=== PATIENT | female | born 1935 | race African-American/Black ===

== ENCOUNTER 2022-03-25 18:01 | Inpatient (IN) | payer OTHER ==
[~2022-03-25] VITALS: Ht 157.5 cm; Wt 63.6 kg
[2022-03-25] MEDS ORDERED: NITROGLYCERIN 0.4MG TABLET SL SL PRN ×2 (19:30→23:15)
[2022-03-25] MEDS ORDERED: ASPIRIN 81MG TABLET PO ONE (19:30)
[2022-03-25 19:54] LABS: BASOPHILS % 0.5 % (0.0-2.0); EOSINOPHILS % 1.8 % (0.0-5.0); HEMATOCRIT. 27.4 % (36.0-48.0); LYMPHOCYTES % 32.3 % (20.0-50.0); MEAN PLATELET VOLUME 9.4 fl (7.4-10.4); MONOCYTES % 6.9 % (2.0-8.0); NEUTROPHILS % 58.5 % (40.0-76.0); PLATELET 190 x1000/uL (130-400); RED BLOOD CELL COUNT 3.01 mill/uL (4.2-5.4); RED CELL DISTRIBUTION WIDTH 14.8 % (11.6-14.6)
[2022-03-25 20:04] LABS: D-DIMER 1.5 mg/L FEU (<0.50); PARTIAL THROMBOPLASTIN TIME 22.8 sec (23.4-31.0); PROTHROMBIN TIME 11.1 sec (9.6-11.0)
[2022-03-25 20:07] LABS: CHLORIDE 102 mEq/L (98-107)
[2022-03-25] MEDS ORDERED: ENOXAPARIN 60MG/0.6ML SYR SUBCUT ONE (22:15)
[2022-03-25] MEDS ORDERED: MAGNESIUM/ALUMINUM HYDROXIDE/SIMETHICONE 30ML UDC PO PRN (23:15)
[2022-03-25] MEDS ORDERED: KETOROLAC 15MG/ML VIAL IV PRN (23:15)
[2022-03-25] MEDS ORDERED: DEXTROSE 50% WATER 50ML SYRINGE IV PRN (23:15)
[2022-03-25] MEDS ORDERED: DOCUSATE SODIUM 100MG CAPSULE PO PRN (23:15)
[2022-03-25] MEDS ORDERED: ACETAMINOPHEN 325MG TABLET PO PRN ×2 (23:15)
[2022-03-25] MEDS ORDERED: IPRATROPIUM/ALBUTEROL 0.5-3(2.5)MG/3ML NEB NEB PRN (23:15)
[2022-03-25] MEDS ORDERED: ZOLPIDEM TARTRATE 5MG TABLET PO PRN (23:15)
[2022-03-25] MEDS ORDERED: CLONIDINE 0.1MG TABLET PO PRN (23:15)
[2022-03-25] MEDS ORDERED: GUAIFENESIN 200MG/10ML SUGAR FREE UDC PO PRN (23:15)
[2022-03-25] MEDS ORDERED: ONDANSETRON HCL 4MG/2ML INJ IV PRN (23:15)
[2022-03-26] VITALS (8 sets, daily range): BP systolic 122–159; BP diastolic 51–62
[2022-03-26 00:23] LABS: ETHANOL BLOOD < 10 mg/dL; HDL CHOLESTEROL 51 mg/dL (40-59); LDL CHOLESTEROL 39 mg/dL (5-100); TOTAL IRON BINDING CAPACITY 324 ug/dL (250-450)
[2022-03-26 01:43] LABS: *AMPHETAMINES SCREEN URINE NEGATIVE (NEGATIVE); *BARBITURATES SCREEN URINE NEGATIVE (NEGATIVE); *BENZODIAZEPINES SCREEN URINE NEGATIVE (NEGATIVE); *COCAINE SCREEN URINE NEGATIVE (NEGATIVE); CANNABINOID URINE SCREEN NEGATIVE (NEGATIVE); METHADONE URINE SCREEN NEGATIVE (NEGATIVE); OPIATES URINE SCREEN NEGATIVE (NEGATIVE); PHENCYCLIDINE URINE SCREEN NEGATIVE (NEGATIVE)
[2022-03-26] MEDS ORDERED: ATOR-2 PO (04:31)
[2022-03-26] MEDS ORDERED: ASPI-1406 PO (04:31)
[2022-03-26] MEDS ORDERED: AMLO10TA80 PO (04:31)
[2022-03-26] MEDS ORDERED: METO-385 PO (04:31)
[2022-03-26] MEDS ORDERED: ISOS10TA2 PO (04:31)
[2022-03-26] MEDS ORDERED: CLOP75TA33 PO (04:31)
[2022-03-26] MEDS ORDERED: NITR0.4T49 SL (04:31)
[2022-03-26] MEDS: BLOOD SUGAR DIAGNOSTIC STRIP TEST SCH ×3 (05:42→21:00)
[2022-03-26] MEDS ORDERED: ASPIRIN 325MG EC TABLET PO SCH (09:00)
[2022-03-26] MEDS: FAMOTIDINE 20MG TABLET PO SCH (09:03)
[2022-03-26] MEDS: ENOXAPARIN 30MG/0.3ML SYR SUBCUT SCH (09:04)
[2022-03-26] MEDS: AMLODIPINE 10MG TABLET PO SCH (09:04)
[2022-03-26] MEDS: INSULIN LISPRO 100 UNITS/ML SUBCUT SCH ×3 (09:16→21:00)
[2022-03-26 10:22] LABS: BASOPHILS % 0.2 % (0.0-2.0); EOSINOPHILS % 1.7 % (0.0-5.0); HEMATOCRIT. 30.3 % (36.0-48.0); HEMOGLOBIN. 9.9 g/dL (12.0-16.0); LYMPHOCYTES % 38.6 % (20.0-50.0); MEAN CORPUSCULAR HEMOGLOBIN 29.6 pg (28.0-32.0); MEAN CORPUSCULAR VOLUME 90.5 fL (81.0-99.0); MEAN PLATELET VOLUME 9.1 fl (7.4-10.4); MONOCYTES % 5.2 % (2.0-8.0); NEUTROPHILS % 54.3 % (40.0-76.0); PLATELET 194 x1000/uL (130-400); RED BLOOD CELL COUNT 3.35 mill/uL (4.2-5.4); RED CELL DISTRIBUTION WIDTH 14.4 % (11.6-14.6)
[2022-03-26] MEDS: SODIUM CHLORIDE 0.45% 1,000 ML IV SCH (12:23)
[2022-03-26 13:19] LABS: CHLORIDE 102 mEq/L (98-107)
[2022-03-26 13:30] LABS: CREATINE KINASE MB FRACTION 1.1 ng/mL (0.5-3.6)
[2022-03-26 13:32] LABS: PHOSPHORUS 3.5 mg/dL (2.5-4.9)
[2022-03-26] MEDS ORDERED: HEPARIN 1000 UNITS/ML 10ML ONE (13:54)
[2022-03-26] MEDS ORDERED: IODIXANOL 320MG/ML 100 ML BOTTLE IV ONE ×2 (13:58→15:33)
[2022-03-26] MEDS ORDERED: MIDAZOLAM HCL 2 MG/2 ML VIAL ONE (14:33)
[2022-03-26] MEDS ORDERED: FENTANYL CITRATE/PF 50MCG/ML 2ML VIAL ONE (14:33)
[2022-03-26] MEDS ORDERED: LIDOCAINE HCL/PF 2% 20MG/ML 5 ML/VIAL ONE ×2 (14:50→15:18)
[2022-03-26] MEDS ORDERED: LIDOCAINE HCL 1% 20ML VIAL (Pyxis) INJ ONE (15:18)
[2022-03-26] MEDS ORDERED: ATROPINE SULFATE 1MG/10ML SYR IV PRN (16:00)
[2022-03-26] MEDS ORDERED: ONDANSETRON HCL 4MG/2ML INJ IV PRN (16:00)
[2022-03-26] MEDS ORDERED: ACETAMINOPHEN 325MG TABLET PO PRN (16:00)
[2022-03-26 17:17] LABS: FOLIC ACID (FOLATE) SERUM 19.3 ng/mL (>5.38)
[2022-03-26 18:07] LABS: CREATINE KINASE MB FRACTION 1.5 ng/mL (0.5-3.6)
[2022-03-27] VITALS (12 sets, daily range): BP systolic 99–141; BP diastolic 52–64
[2022-03-27] MEDS: SODIUM CHLORIDE 0.45% 1,000 ML IV SCH ×2 (02:25→20:38)
[2022-03-27] MEDS: BLOOD SUGAR DIAGNOSTIC STRIP TEST SCH ×4 (06:35→20:23)
[2022-03-27] MEDS: INSULIN LISPRO 100 UNITS/ML SUBCUT SCH ×4 (06:35→20:28)
[2022-03-27 07:05] LABS: BASOPHILS % 0.2 % (0.0-2.0); EOSINOPHILS % 0.9 % (0.0-5.0); HEMATOCRIT. 28.4 % (36.0-48.0); HEMOGLOBIN. 9.5 g/dL (12.0-16.0); LYMPHOCYTES % 23.9 % (20.0-50.0); MEAN CORPUSCULAR HEMOGLOBIN 30.4 pg (28.0-32.0); MEAN CORPUSCULAR VOLUME 91.3 fL (81.0-99.0); MEAN PLATELET VOLUME 9.1 fl (7.4-10.4); MONOCYTES % 7.3 % (2.0-8.0); NEUTROPHILS % 67.7 % (40.0-76.0); PLATELET 167 x1000/uL (130-400); RED BLOOD CELL COUNT 3.11 mill/uL (4.2-5.4); RED CELL DISTRIBUTION WIDTH 14.5 % (11.6-14.6)
[2022-03-27 07:16] LABS: CHLORIDE 103 mEq/L (98-107)
[2022-03-27 07:27] LABS: PHOSPHORUS 3.8 mg/dL (2.5-4.9)
[2022-03-27] MEDS: ASPIRIN 325MG TABLET PO SCH (08:39)
[2022-03-27] MEDS: AMLODIPINE 10MG TABLET PO SCH (08:40)
[2022-03-27] MEDS: ENOXAPARIN 30MG/0.3ML SYR SUBCUT SCH (08:40)
[2022-03-27] MEDS: FAMOTIDINE 20MG TABLET PO SCH (08:40)
[2022-03-28] VITALS (8 sets, daily range): BP systolic 90–137; BP diastolic 58–77
[2022-03-28] MEDS: INSULIN LISPRO 100 UNITS/ML SUBCUT SCH (05:39)
[2022-03-28] MEDS: BLOOD SUGAR DIAGNOSTIC STRIP TEST SCH (05:39)
[2022-03-28 07:54] LABS: BASOPHILS % 0.2 % (0.0-2.0); EOSINOPHILS % 1.8 % (0.0-5.0); HEMATOCRIT. 27.2 % (36.0-48.0); HEMOGLOBIN. 9.1 g/dL (12.0-16.0); LYMPHOCYTES % 39.1 % (20.0-50.0); MEAN CORPUSCULAR HEMOGLOBIN 30.1 pg (28.0-32.0); MEAN CORPUSCULAR VOLUME 90.6 fL (81.0-99.0); MEAN PLATELET VOLUME 9.2 fl (7.4-10.4); NEUTROPHILS % 48.9 % (40.0-76.0); PLATELET 149 x1000/uL (130-400); RED BLOOD CELL COUNT 3.01 mill/uL (4.2-5.4); RED CELL DISTRIBUTION WIDTH 14.4 % (11.6-14.6)
[2022-03-28] MEDS: ASPIRIN 325MG TABLET PO SCH (09:19)
[2022-03-28] MEDS: AMLODIPINE 10MG TABLET PO SCH (09:19)
[2022-03-28] MEDS: ENOXAPARIN 30MG/0.3ML SYR SUBCUT SCH (09:20)
[2022-03-28] MEDS: FAMOTIDINE 20MG TABLET PO SCH (09:20)
[2022-03-28 09:49] LABS: PHOSPHORUS 3.6 mg/dL (2.5-4.9)
== END 2022-03-28 13:00 | disposition home or self-care (01) | DRG 287 ==
LOC: ER 18:01 → MICUSO 22:51 → 7EST 03-26 02:24 → 3WST 03-26 17:01
PROVIDERS: ADMIT Internal Medicine; ATTEND Internal Medicine
PROC: 4A023N7 Measurement of Cardiac Sampling and Pressure, Left Heart, Percutaneous Approach (ICD-10-PCS; principal; 2022-03-26)
PROC: B211YZZ Fluoroscopy of Multiple Coronary Arteries using Other Contrast (ICD-10-PCS; 2022-03-26)
DX: I25.110 Atherosclerotic heart disease of native coronary artery with unstable angina pectoris (principal); E44.1 Mild protein-calorie malnutrition; J81.1 Chronic pulmonary edema; I10 Essential (primary) hypertension; D63.8 Anemia in other chronic diseases classified elsewhere; E11.65 Type 2 diabetes mellitus with hyperglycemia; E78.00 Pure hypercholesterolemia, unspecified; I45.10 Unspecified right bundle-branch block; I07.1 Rheumatic tricuspid insufficiency; R09.02 Hypoxemia; M19.90 Unspecified osteoarthritis, unspecified site; E03.9 Hypothyroidism, unspecified; E78.5 Hyperlipidemia, unspecified; Z98.51 Tubal ligation status; Z87.891 Personal history of nicotine dependence; Z20.822 Contact with and (suspected) exposure to COVID-19; Z68.25 Body mass index [BMI] 25.0-25.9, adult
CPT/HCPCS: 36415; 71045; 71275; 80048; 80053; 80061; 80305; 80320; 82550; 82553; 82607; 82746; 82962; 83036; 83540; 83550; 83735; 83880; 84100; 84439; 84443; 84484; 85025; 85379; 87426; 93005; 93306; 93458; 93970; 97161; 97165; 99285; C1760; C1769; C1887; C1893; J1644; J1650; J1815; J2250; J3010; J3490; Q9967; G0480